=== PATIENT | female | born 1990 | race American Indian/Alaskan Native ===

== ENCOUNTER 2021-06-17 15:29 | Emergency (ER) | payer MEDICAID ==
--- NOTE | 2021-06-17 15:50 | EDM.PDOC ---
ED HPI GENERAL MEDICAL PROBLEM - General Stated Complaint: LOWER ABD PAIN AFTER C SECTION Time Seen by Provider: 06/17/21 15:50 Source of Information: Reports: Patient History Limitations: Reports: No Limitations - History of Present Illness INITIAL COMMENTS - FREE TEXT/NARRATIVE: 31-year-old female AB 2 who recently delivered by at [facility] on 06/12/2021. She had no problems with a but did have some elevated blood pressure and there was some concern about this during her stay but the patient was discharged on 06/15/2021 and she reports she had been having pain in her lower abdomen and along the incision all the time but she reports it was appearing to get better and then over the past 2 days she has noticed that the pain in her incision seems to have worsened with time, particularly along the right side of the incision and also across her lower abdomen. She reports the pain is an 8/10. The pain is a sharp and sore type pain that seems to be worse with palpation and with movement. She is still having bloody discharge but it is a bright red bloody discharge and is not foul smelling. She feels that she has had fevers in that she has felt hot and has felt "cruddy" but she has never measured a fever. There has been some nausea today which she had not had before but no vomiting. She has had no dysuria or hematuria. She has no back or flank pain. She has been drinking liquids well but not really eating that well today. She has had no chest pain. There has been no shortness of breath. There are no other associated signs or symptoms. There are no other modifying factors. Onset: Other (Last 2 days.) Duration: Getting Worse Location: Reports: Abdomen Quality: Reports: Sharp, Other (Sore) Severity: Moderate (to the ear) Improves with: Reports: None Worsens with: Reports: Other (Palpation), Movement Context: Reports: Other (As above.) Associated Symptoms: Reports: No Other Symptoms (Except as above.) Treatments [employer]: Reports: Acetaminophen, NSAIDS Right Lower Abdomen Pain Score (Numeric/FACES): 8 - Related Data Allergies Allergy/AdvReac Type Severity Reaction Status Date / Time azithromycin [From Zithromax] Allergy Cannot Verified 06/17/21 16:04 Remember Home Meds: Home Meds Docusate Sodium [Dulcolax Stool Softener] 100 mg PO DAILY 06/17/21 [History] Pnv No.95/Ferrous Fum/Folic AC [ Multivitamin Tablet] 1 tab PO DAILY 06/17/21 [History] Propranolol [Inderal LA] 120 mg PO DAILY 06/17/21 [History] Past Medical History Neurological History: Reports: Seizure - Past Surgical History GI Surgical History: Reports: Cholecystectomy Female Surgical History: Reports: Section (4), Tubal Ligation (During the last ) Social & Family History - Tobacco Use Tobacco Use Status *Q: Current Every Day Tobacco User - Alcohol Use Alcohol Use History: No - Living Situation & Occupation Living situation: Reports: ED ROS GENERAL - Review of Systems Review Of Systems: See Below Constitutional: Reports: Fever (Subjective), Chills HEENT: Reports: Other (Nasal congestion.). Denies: Throat Pain, Throat Swelling Respiratory: Reports: Cough. Denies: Shortness of Breath Cardiovascular: Denies: Chest Pain, Lightheadedness, Syncope GI/Abdominal: Reports: Abdominal Pain, Nausea. Denies: Diarrhea, Vomiting : Denies: Dysuria, Hematuria Musculoskeletal: Denies: Neck Pain, Back Pain Neurological: Denies: Headache, Difficulty Walking Psychiatric: Denies: Anxiety Hematologic/Lymphatic: Denies: Easy Bleeding, Easy Bruising ED EXAM, GI/ABD - Physical Exam Exam: See Below Exam Limited By: No Limitations General Appearance: Alert, Mild Distress, Obese, Other (Nontoxic appearing) Eyes: Bilateral: Normal Appearance, EOMI Ears: Normal External Exam, Hearing Grossly Normal Nose: Normal Inspection, Normal Mucosa, No Blood Throat/Mouth: Normal Inspection, Normal Oropharynx, Normal Voice, No Airway Compromise Head: Atraumatic, Normocephalic Neck: Normal Inspection, Supple, Non-Tender, Full Range of Motion Respiratory/Chest: No Respiratory Distress, Lungs Clear, Normal Breath Sounds, No Accessory Muscle Use, Chest Non-Tender Cardiovascular: Normal Peripheral Pulses, Regular Rate, Rhythm, No Murmur GI/Abdominal Exam: Normal Bowel Sounds, Soft, Tender (Tender over the lower abdomen.), Other (The incision has some ecchymosis but there is no erythema and no drainage. There is some intertrigo along the margins of the incision along the upper pannus but no and there is no mass noted.) Back Exam: Normal Inspection. No: CVA Tenderness (R), CVA Tenderness (L) Extremities: Normal Inspection, Normal Range of Motion, Non-Tender, No Pedal Edema, Normal Capillary Refill Neurological: Alert, Oriented, CN II-XII Intact, Normal Cognition, No Motor/Sensory Deficits Psychiatric: Normal Affect Skin Exam: Warm, Dry, Normal Color, Other (As above.). No: Increased Warmth, Lymphangitis Course - Vital Signs Last Recorded V/S: Last Vital Signs Temp 35.9 C L 06/17/21 15:30 Pulse 85 06/17/21 15:30 Resp 20 06/17/21 15:30 BP 174/102 H 06/17/21 15:30 Pulse Ox 96 06/17/21 15:30 - Orders/Labs/Meds Labs: Laboratory Tests 06/17/21 06/17/21 Range/Units 16:20 16:20 WBC 9.5 (3.0-10.3) x10-3/uL RBC 4.43 (3.60-5.20) x10(6)uL Hgb 12.3 (11.4-15.5) g/dL Hct 37.6 (34.2-48.2) % MCV 84.9 (76.7-100.5) fL MCH 27.7 (23.9-33.9) pg MCHC 32.7 (31.9-34.8) g/dL RDW 14.6 (12.3-16.5) % Plt Count 345 (151-488) x10(3)uL MPV 8.0 (7.1-12.4) fL Neut % (Auto) 63.4 (30.8-76.2) % Lymph % (Auto) 23.9 (18.4-52.1) % Colbert % (Auto) 4.7 (4.4-15.7) % Eos % (Auto) 7.1 (0.6-8.1) % Baso % (Auto) 0.9 (0.2-1.5) % Neut # (Auto) 6.0 (1.5-6.3) x10-3/uL Lymph # (Auto) 2.3 (1.0-4.4) x10-3/uL Colbert # (Auto) 0.4 (0.3-1.0) x10-3/uL Eos # (Auto) 0.7 (0.0-0.8) x10-3/uL Baso # (Auto) 0.1 (0.0-0.1) x10-3/uL C-Reactive Protein 7.8 H* (0.5-0.9) mg/dL Meds: Medications Discontinued Medications Generic Name Dose Route Start Last Admin Trade Name Drake PRN Reason Stop Dose Admin Acetaminophen 1,000 mg 06/17/21 16:05 06/17/21 16:37 Acetaminophen 500 Mg Tab PO 06/17/21 16:06 1,000 mg ONETIME ONE Administration Tramadol HCl 100 mg 06/17/21 16:05 06/17/21 16:37 Tramadol 50 Mg Tab PO 06/17/21 16:06 100 mg ONETIME ONE Administration - Re-Assessments/Exams Free Text/Narrative Re-Assessment/Exam: 06/17/21 16:45: The white blood cell count was 9.5. The platelet count was normal. The hemoglobin is normal. The CRP is 7.8. The patient has received tramadol and Tylenol for pain with some reduction in her symptoms. Her blood pressure is quite elevated at 170/100. A repeat was 62/98. Her temperature was repeated and was 97.2 and we have not demonstrated any fever while she's been here. Her pulse rate is in the 80s. I will need to call and discuss the patient's case with the OB doctor at [facility]. 06/17/21 17:05: I did call [facility] and they will have to call me back with Dr. Juan who is the knowledge manager compensation administrator. 06/17/21 17:55: I discussed the patient's case with Dr. Juan, knowledge manager at [facility] in [place], and she is not really concerned that much about the patient's lochia or about the patient's incisional pain and lower abdominal pain. She feels that these are normal in the patient's and post period. She is, however, quite concerned about the patient's elevated blood pressure she feels that that would warrant the patient coming up to [facility] to be evaluated through the observation unit. She has agreed to accept the patient in transfer and the patient will be transferred via private vehicle to [facility] post observation unit, room 1016. 06/17/21 18:10: I discussed this with the patient and with the patient's . I explained to them all of the information to Dr. juan had given the and also her concerns. The patient at this point is also concerned and does plan on going to [facility] for the above evaluation/follow-up the is here and is agreeable to transferring the patient via POV. I will plan on discharging the patient and then they should go directly to the [facility] to be seen at the observation unit. Departure - Departure Time of Disposition: 18:01 Disposition: DC/Tfer to Acute Hospital 02 Condition: Fair Clinical Impression: Elevated blood pressure reading, pain - Discharge Information Referrals: Clement Orosco MD [Primary Care Provider] - Forms: ED Department Discharge Additional Instructions: Go directly to [facility] to [facility] to be seen at observation unit. It will be room 1016. You are being sent there because of your elevated blood pressure and concern about your elevated blood pressure and possible reaction related to your . Sepsis Event Note (ED) - Focused Exam Vital Signs: Vital Signs Temp Pulse Resp BP Pulse Ox 06/17/21 15:30 35.9 C L 85 20 174/102 H 96
[2021-06-17] MEDS: traMADol 50 MG Tab PO ONE (16:37)
[2021-06-17] MEDS: Acetaminophen 500 MG Tab PO ONE (16:37)
== END 2021-06-17 18:15 ==
LOC: FB.ED 15:29
DX: O90.89 Other complications of the puerperium, not elsewhere classified (principal); G89.18 Other acute postprocedural pain; R10.31 Right lower quadrant pain; R03.0 Elevated blood-pressure reading, without diagnosis of hypertension; Z72.0 Tobacco use; Z88.1 Allergy status to other antibiotic agents; Z98.890 Other specified postprocedural states
CPT/HCPCS: 36415; 85025; 86140; 99284; A9270